=== PATIENT | male | born 1960 | race Caucasian/White ===

== ENCOUNTER 2016-08-11 06:08 | Emergency (ER) | payer BC ==
[~2016-08-11 06:08] MED LIST: NAPROSYN500 MG PO; PREDNISONE PO; ZYLOPRIM PO
== END 2016-08-11 07:08 | disposition home or self-care (01) ==
LOC: CED 06:08
DX: M10.032 Idiopathic gout, left wrist (principal); Z79.899 Other long term (current) drug therapy
CPT/HCPCS: 99283